=== PATIENT | male | born 1970 | race Caucasian/White ===

== ENCOUNTER 2021-05-23 13:52 | Emergency (ER) | payer OTHER ==
[~2021-05-23] VITALS: Ht 167.6 cm; Wt 104.3 kg
== END 2021-05-23 16:12 ==
LOC: ER 13:52
DX: J01.80 Other acute sinusitis (principal)

== ENCOUNTER 2021-05-28 02:27 | Emergency (ER) | payer OTHER ==
[~2021-05-28] VITALS: Ht 167.6 cm; Wt 104.3 kg
[2021-05-28] MEDS ORDERED: ATACAND32 MG (02:48)
[2021-05-28] MEDS ORDERED: ZYNCOF 20-400120 ML PO (08:48)
[2021-05-28] MEDS ORDERED: NORFLEX100MG PO (08:48)
[2021-05-28] MEDS ORDERED: NAPR500T14 PO (08:48)
[2021-05-28] MEDS ORDERED: XOPENEX0.63 MG/3 IH (08:48)
== END 2021-05-28 09:45 ==
LOC: ER 02:27
DX: R06.02 Shortness of breath (principal); Z03.818 Encounter for observation for suspected exposure to other biological agents ruled out

== ENCOUNTER 2021-06-28 19:40 | Emergency (ER) | payer OTHER ==
[~2021-06-28] VITALS: Ht 167.6 cm; Wt 98.9 kg
[~2021-06-28 19:40] MED LIST: ATACAND32 MG; NAPR500T14 PO; NORFLEX100MG PO; XOPENEX0.63 MG/3 IH; ZYNCOF 20-400120 ML PO
[2021-06-28] MEDS ORDERED: BUSPIRONE HCL7.5 MG (19:54)
[2021-06-28] MEDS ORDERED: MIRTAZAPINE15 M1 (19:55)
[2021-06-28] MEDS ORDERED: NORFLEX100MG PO (22:36)
[2021-06-28] MEDS ORDERED: KETO10TA2 PO (22:36)
== END 2021-06-28 22:54 | disposition home or self-care (01) ==
LOC: ER 19:40
DX: M62.838 Other muscle spasm (principal)

== ENCOUNTER 2022-01-11 23:13 | Emergency (ER) | payer OTHER ==
[~2022-01-11] VITALS: Ht 167.6 cm; Wt 89.8 kg
[~2022-01-11 23:13] MED LIST changes: +BUSPIRONE HCL7.5 MG; +KETO10TA2 PO; +MIRTAZAPINE15 M1
[2022-01-11] MEDS ORDERED: ATACAND16 MG (23:34)
[2022-01-11] MEDS ORDERED: EFFEXOR XR75 MG (23:36)
[2022-01-11] MEDS ORDERED: VENLAFAXINE HCL75 M1 (23:37)
[2022-01-12] MEDS ORDERED: KETO10TA2 PO (02:39)
== END 2022-01-12 02:56 | disposition home or self-care (01) ==
LOC: ER 23:13
DX: S89.92XA Unspecified injury of left lower leg, initial encounter (principal); W06.XXXA Fall from bed, initial encounter; Y93.9 Activity, unspecified; Y92.9 Unspecified place or not applicable

== ENCOUNTER 2022-11-18 04:14 | Emergency (ER) | payer OTHER ==
[~2022-11-18] VITALS: Ht 167.6 cm; Wt 99.8 kg
[~2022-11-18 04:14] MED LIST changes: +ATACAND16 MG; +EFFEXOR XR75 MG; +VENLAFAXINE HCL75 M1
[2022-11-18] MEDS ORDERED: ATACAND32 MG (04:33)
== END 2022-11-18 10:43 | disposition home or self-care (01) ==
LOC: ER 04:14
DX: R10.32 Left lower quadrant pain (principal)

== ENCOUNTER 2023-02-19 16:13 | Emergency (ER) | payer OTHER ==
[~2023-02-19] VITALS: Ht 167.6 cm; Wt 99.8 kg
== END 2023-02-19 17:35 | disposition home or self-care (01) ==
LOC: ER 16:13
DX: J32.9 Chronic sinusitis, unspecified (principal)

== ENCOUNTER 2023-11-26 19:58 | Emergency (ER) | payer OTHER ==
[~2023-11-26] VITALS: Ht 167.6 cm; Wt 101.6 kg
[2023-11-26] MEDS ORDERED: HYDROCHLOROTH12.5 MG (20:26)
[2023-11-26] MEDS ORDERED: FARXIGA10 MG (20:26)
[2023-11-26] MEDS ORDERED: FAMOTIDINE/PF 20 MG/2 ML VIAL IV ONE (22:30)
[2023-11-26] MEDS ORDERED: DICYCLOMINE HCL 20 MG TABLET PO ONE (22:30)
[2023-11-26] MEDS ORDERED: SIMETHICONE 125 MG CAPSULE PO ONE (22:30)
[2023-11-26 23:14] LABS: HEMATOCRIT 52.1 % (39.0-48.0); HEMOGLOBIN 17.7 g/dL (13-16.00); MEAN CELL VOLUME 88.3 fL (80.0-100.00); MEAN CORPUSCULAR HEMOGLOBIN 30.1 pg (27.00-32.0); PLATELET COUNT 215 K/uL (150-450); RED CELL DISTRIBUTION WIDTH 14.8 % (11.5-14.5)
[2023-11-26 23:21] LABS: URINE APPEARANCE Clear; URINE BILIRRUBIN Negative (NEGATIVE); URINE BLOOD Small; URINE COLOR Yellow; URINE LEUKOCYTE Negative; URINE NITRATE Negative; URINE UROBILINOGEN 0.2 E.U./dl
[2023-11-26 23:22] LABS: URINE BACTERIA 18.8 uL (0.0-1933); URINE EPITHELIAL CELLS 1.3 uL (0.0-38.8); URINE GLUCOSE >=1000 MG/DL (NEGATIVE); URINE PROTEIN 100 (NEGATIVE); URINE RBC 8.7 uL (0.0-20.8)
[2023-11-26 23:34] LABS: ALBUMIN 3.7 gm/dL (3.4-5.0); BILIRUBIN TOTAL 0.66 mg/dL (0.3-1.2); CALCIUM 9.2 mg/dL (8.5-10.1); CREATININE SERUM 1.7 mg/dL (0.70-1.30); GFR 42.37; GLOBULINA 4.1 G/DL (2.4-3.5); POTASSIUM 4.23 mEq/L (3.5-5.1); TOTAL PROTEIN 7.8 gm/dL (6.4-8.2)
== END 2023-11-27 08:52 | disposition home or self-care (01) ==
LOC: ER 19:58
PROVIDERS: Emergency Medicine
DX: R10.31 Right lower quadrant pain (principal); K57.30 Diverticulosis of large intestine without perforation or abscess without bleeding; K76.0 Fatty (change of) liver, not elsewhere classified; K40.20 Bilateral inguinal hernia, without obstruction or gangrene, not specified as recurrent

== ENCOUNTER 2024-01-02 14:45 | Emergency (ER) | payer OTHER ==
[~2024-01-02] VITALS: Ht 167.6 cm; Wt 103.9 kg
[~2024-01-02 14:45] MED LIST changes: +FARXIGA10 MG; +HYDROCHLOROTH12.5 MG
[2024-01-02 17:25] LABS: HEMATOCRIT 50.5 % (39.0-48.0); HEMOGLOBIN 17.5 g/dL (13-16.00); MEAN CELL VOLUME 86.7 fL (80.0-100.00); MEAN CORPUSCULAR HGB CONC 34.6 g/dl (32.0-36.0); PLATELET COUNT 175 K/uL (150-450); RED BLOOD COUNT 5.82 M/uL (4.00-6.00); RED CELL DISTRIBUTION WIDTH 14.7 % (11.5-14.5)
[2024-01-02 17:25] LABS: PH,URINE 5.5 (5.0-8.0); URINE APPEARANCE Clear; URINE BILIRRUBIN Negative (NEGATIVE); URINE BLOOD Moderate; URINE COLOR Yellow; URINE LEUKOCYTE Negative; URINE NITRATE Negative; URINE PROTEIN 30 (NEGATIVE)
[2024-01-02 17:26] LABS: URINE BACTERIA 7.5 uL (0.0-1933); URINE RBC 55.3 uL (0.0-20.8); URINE WBC 6.4 uL (0.0-23.2)
[2024-01-02 17:28] LABS: URINE GLUCOSE >=1000 MG/DL (NEGATIVE)
[2024-01-02] MEDS ORDERED: ZITHROMAX500 MG PO (19:22)
== END 2024-01-02 19:25 | disposition home or self-care (01) ==
LOC: ER 14:46
PROVIDERS: Emergency Medicine
DX: J02.9 Acute pharyngitis, unspecified (principal); J06.9 Acute upper respiratory infection, unspecified; I10 Essential (primary) hypertension; Z20.822 Contact with and (suspected) exposure to COVID-19

== ENCOUNTER 2024-06-07 13:18 | Emergency (ER) | payer OTHER ==
[~2024-06-07] VITALS: Ht 167.6 cm; Wt 103.9 kg
[~2024-06-07 13:18] MED LIST changes: +ZITHROMAX500 MG PO
[2024-06-07] MEDS ORDERED: DEXAMETHASONE SODIUM PHOSPHATE 4 MG/ML VIAL ONE (14:00)
[2024-06-07] MEDS ORDERED: DEXAMETHASONE SODIUM PHOSPHATE 4 MG/ML VIAL IM ONE (14:00)
[2024-06-07 14:31] LABS: HEMATOCRIT 49.8 % (39.0-48.0); HEMOGLOBIN 17.5 g/dL (13-16.00); MEAN CELL VOLUME 87.5 fL (80.0-100.00); MEAN CORPUSCULAR HEMOGLOBIN 30.8 pg (27.00-32.0); MEAN CORPUSCULAR HGB CONC 35.2 g/dl (32.0-36.0); PLATELET COUNT 210 K/uL (150-450); RED BLOOD COUNT 5.69 M/uL (4.00-6.00); RED CELL DISTRIBUTION WIDTH 14.3 % (11.5-14.5)
[2024-06-07] MEDS ORDERED: ZITHROMAX500 MG PO (15:21)
[2024-06-07] MEDS ORDERED: TUSNEL LIQUID178 ML PO (15:21)
== END 2024-06-07 15:40 | disposition home or self-care (01) ==
LOC: ER 13:20
PROVIDERS: General Practice
DX: B34.9 Viral infection, unspecified (principal); I10 Essential (primary) hypertension; Z20.822 Contact with and (suspected) exposure to COVID-19
CPT/HCPCS: 36415; 96372; 99282; J1100

== ENCOUNTER 2024-06-18 14:09 | Outpatient (CLI) | payer OTHER ==
[~2024-06-18 14:09] MED LIST changes: +TUSNEL LIQUID178 ML PO
== END 2024-06-18 14:15 | disposition home or self-care (01) ==
LOC: SONOGRAMA 14:09
PROVIDERS: ATTEND Urology
DX: N40.0 Benign prostatic hyperplasia without lower urinary tract symptoms (principal); N31.1 Reflex neuropathic bladder, not elsewhere classified

== ENCOUNTER 2024-06-18 15:03 | Outpatient (CLI) | payer OTHER ==
[2024-06-18 15:29] LABS: URINE APPEARANCE Error; URINE BILIRRUBIN Negative (NEGATIVE); URINE BLOOD Small; URINE COLOR Yellow; URINE KETONE Negative (NEGATIVE); URINE LEUKOCYTE Negative; URINE NITRATE Negative; URINE UROBILINOGEN 0.2 E.U./dl
[2024-06-18 15:31] LABS: URINE EPITHELIAL CELLS 1.8 uL (0.0-38.8); URINE RBC 13.7 uL (0.0-20.8); URINE WBC 4.6 uL (0.0-23.2)
[2024-06-18 15:35] LABS: URINE CAST 1.06 uL (0.0-1.40); URINE GLUCOSE >=1000 MG/DL (NEGATIVE); URINE PROTEIN 100 (NEGATIVE)
== END 2024-06-18 15:11 | disposition home or self-care (01) ==
LOC: LAB 15:03
PROVIDERS: ATTEND Urology
DX: N40.0 Benign prostatic hyperplasia without lower urinary tract symptoms (principal); R97.20 Elevated prostate specific antigen [PSA]; R31.1 Benign essential microscopic hematuria

== ENCOUNTER 2024-06-18 15:25 | Emergency (ER) | payer OTHER ==
[~2024-06-18] VITALS: Ht 167.6 cm; Wt 99.8 kg
[2024-06-18] MEDS ORDERED: KETOROLAC TROMETHAMINE 60 MG VIAL IM ONE ×2 (19:45→19:53)
[2024-06-18] MEDS ORDERED: ORPHENADRINE CITRATE 30 MG/ML AMPUL IM ONE (19:45)
[2024-06-18] MEDS ORDERED: ORPHENADRINE CITRATE 30 MG/ML AMPUL ONE (19:52)
== END 2024-06-18 22:04 | disposition home or self-care (01) ==
LOC: ER 15:27
DX: M75.50 Bursitis of unspecified shoulder (principal); M75.90 Shoulder lesion, unspecified, unspecified shoulder; I10 Essential (primary) hypertension

== ENCOUNTER 2024-09-06 17:39 | Emergency (ER) | payer OTHER ==
[~2024-09-06] VITALS: Ht 167.6 cm; Wt 99.8 kg
[2024-09-06 21:50] LABS: HEMATOCRIT 49.5 % (39.0-48.0); MEAN CELL VOLUME 89.3 fL (80.0-100.00); MEAN CORPUSCULAR HEMOGLOBIN 30.7 pg (27.00-32.0); MEAN CORPUSCULAR HGB CONC 34.4 g/dl (32.0-36.0); PLATELET COUNT 171 K/uL (150-450); RED BLOOD COUNT 5.54 M/uL (4.00-6.00); RED CELL DISTRIBUTION WIDTH 13.7 % (11.5-14.5)
[2024-09-06] MEDS ORDERED: PAXLOVID 300-11 EAC1 PO (22:53)
[2024-09-06] MEDS ORDERED: PAXLOVID 150-11 EAC1 PO (22:56)
[2024-09-06 23:17] LABS: PH,URINE 5.5 (5.0-8.0); URINE APPEARANCE Clear; URINE BILIRRUBIN Negative (NEGATIVE); URINE BLOOD Large; URINE COLOR Yellow; URINE KETONE 15 (NEGATIVE); URINE LEUKOCYTE Negative; URINE NITRATE Negative; URINE UROBILINOGEN 0.2 E.U./dl
[2024-09-06 23:21] LABS: URINE BACTERIA 4.8 uL (0.0-1933); URINE EPITHELIAL CELLS 3.6 uL (0.0-38.8); URINE RBC 146.1 uL (0.0-20.8); URINE WBC 8.5 uL (0.0-23.2)
[2024-09-06 23:32] LABS: URINE CAST 0.58 uL (0.0-1.40); URINE GLUCOSE >=1000 MG/DL (NEGATIVE); URINE PROTEIN 100 (NEGATIVE)
== END 2024-09-07 01:28 | disposition home or self-care (01) ==
LOC: ER 17:41
PROVIDERS: Preventive Medicine Public Health & General Preventive Medicine
DX: U07.1 COVID-19 (principal); I10 Essential (primary) hypertension

== ENCOUNTER 2025-07-09 08:28 | Outpatient (CLI) | payer OTHER ==
[~2025-07-09 08:28] MED LIST changes: +PAXLOVID 150-11 EAC1 PO; +PAXLOVID 300-11 EAC1 PO
== END 2025-07-09 08:29 | disposition home or self-care (01) ==
LOC: TOM 08:28
PROVIDERS: ATTEND Internal Medicine Sports Medicine
DX: R10.12 Left upper quadrant pain (principal)